=== PATIENT | female | born 1965 | race Caucasian/White ===

== ENCOUNTER 2016-12-29 22:07 | Emergency (ER) | payer MEDICARE, OTHER ==
--- NOTE | ~2016-12-29 | US85 ---
[facility] A Service [facility] RADIOLOGY TEXT RESULTS PATIENT: GAEL TOVAR LOCATION: SED : 63 UNIT #: [id number] AGE: [address]: Nikko Fitzgerald DO SEX: F ORDER DR: [id number] [place] [id number] E MR#: [id number] Acc #: [id number] NAME: GAEL TOVAR : 1965 SEX: F STUDY DATE/TIME: 12/29/2016 22:35 UNIT: SED ROOM: STUDY DESCRIPTION: [facility] Attending Physician: Nikko Fitzgerald D.O. Ordering Physician: Nikko Fitzgerald D.O. Primary Care Physician: Jose Ruelas M.D. MEDICAL IMAGING REPORT This report is preliminary unless electronic signature is present. EXAM Right leg vein Doppler, 12/29 at 22:35. INDICATIONS Right hip, groin and thigh pain for 2 weeks. Fall 1 week ago. FINDINGS TECHNIQUE Venous ultrasound examination of the right lower extremity was performed using grayscale, spectral Doppler and color flow Doppler imaging. FINDINGS The examination is negative. There is no evidence of right lower extremity deep venous thrombus from the groin to the lower calf. Visualized greater saphenous vein is also patent. IMPRESSION Negative examination. No evidence of right lower extremity deep venous thrombosis. Dictated by... Gino Xiao Jr., M.D. THIS IS AN ELECTRONICALLY VERIFIED REPORT Gino Xiao Jr., M.D. at 12/30/2016 12:34 PM JOHS/cedrick TD: 12/30/2016 07:42 JOB #: [id number] MEDICAL IMAGING REPORT [facility] A Service [facility] RADIOLOGY TEXT RESULTS PATIENT: GAEL TOVAR LOCATION: SED : 63 UNIT #: [id number] AGE: [address]: Nikko Fitzgerald DO SEX: F ORDER DR: Page 1 of 1
--- NOTE | ~2016-12-29 | CR151 ---
[facility]. [facility] A Service of [facility] & [facility] RADIOLOGY TEXT RESULTS PATIENT: GAEL TOVAR LOCATION: SED : 63 UNIT #: [id number] AGE: [address]: Nikko Fitzgerald DO SEX: F ORDER DR: [id number] [place] [id number] E MR#: [id number] Acc #: [id number] NAME: GAEL TOVAR : 1965 SEX: F STUDY DATE/TIME: 12/29/2016 22:11 UNIT: SED ROOM: STUDY DESCRIPTION: CR Hip Min 2 Views Rt Attending Physician: Nikko Fitzgerald D.O. Ordering Physician: Nikko Fitzgerald D.O. Primary Care Physician: Jose Ruelas M.D. MEDICAL IMAGING REPORT This report is preliminary unless electronic signature is present. EXAM Right hip, 2 views. INDICATIONS Right hip pain for 1 week. COMPARISON With 09/22/2015. FINDINGS No fracture or dislocation. Joint spaces preserved. Postop change in lower lumbar spine. IMPRESSION No fracture or dislocation. Dictated by... Vinay Mckeon M.D. THIS IS AN ELECTRONICALLY VERIFIED REPORT Vinay Mckeon M.D. at 01/01/2017 8:03 AM LINK/cedrick TD: 12/30/2016 07:07 JOB #: [id number] MEDICAL IMAGING REPORT Page 1 of 1
[~2016-12-29 22:07] MED LIST: ABILIFY PO; ACULAR10 ML OP; ALPRAZOLAM PO; AMBIEN10 MG PO; BUSPAR PO; CELEXA PO; CIPRO PO; CITRATE OF MAG300 ML PO; DIAZEPAM PO; DICLOFENAC PO; DICYCLOMINE HCL20 MG PO; EMBEDA ER 20-01 EACH PO; ESGIC CAPSULE1 CAP PO; FAMOTIDINE PO; FLEXERIL PO; FLEXERIL10 M1 PO; FLEXERIL10 MG PO; FOSAMAX PO; HYDROCODON-ACE1 EAC5 PO; HYDROCODON-ACE1 EAC6; IBUPROFEN PO; IBUPROFEN600 MG PO; IBUPROFEN800 MG PO; ILOTYCIN1 GM OD; IMITREX PO; K-DUR20 ME1 PO; LIORESAL10 MG PO; LODINE; LORTAB 10-3251 EACH PO; LORTAB 10-5001 EACH PO; LORTAB 10/500 T1 TAB PO; LORTAB 5/500 TA1 TA1 PO; LORTAB 7.5-5001 TAB PO; LUNESTA; MEDROL DOSEPAK4 MG PO; MEDROL4 MG/DOSE- PO; MIRALAX17 GM PO; MOBIC; NEURONTIN; NEURONTIN600 MG PO; NO MEDICATIONS; NORCO 10/325 TA1 TAB PO; NORCO 7.5-3251 EACH; NORVASC; NORVASC PO; NORVASC10 MG; ORUDIS75 M1 PO; PERCOCET 10/3251 TAB PO; PERCOCET 7.5-31 EACH PO; PERCOCET PO; PERCOCET7.5 PO; PHENERGAN PO; PHENERGAN25 M1 PO; PHENERGAN25 MG PO; PREVACID PO; ROBAXIN500 MG PO; SKELAXIN PO; TEMAZEPAM PO; TOBRADEX EYE DR10 ML OU; TYLENOL #3 PO; ULTRAM PO; VICODIN PO; VISTARIL PO; VOLTAREN50 MG PO; VOLTAREN75 MG PO; [UNRECOGNIZED DRUG - REMARK]
[2016-12-29] MEDS ORDERED: FLEXERIL10 MG PO (23:52)
[2016-12-29] MEDS ORDERED: VOLTAREN50 MG PO (23:52)
== END 2016-12-30 00:06 | disposition home or self-care (01) ==
LOC: SED 22:07
DX: M79.651 Pain in right thigh (principal); Z86.19 Personal history of other infectious and parasitic diseases; Z98.51 Tubal ligation status; F17.200 Nicotine dependence, unspecified, uncomplicated
CPT/HCPCS: 73502; 93971; 96372; 99284; J1885; J2930

== ENCOUNTER 2017-01-22 18:08 | Emergency (ER) | payer MEDICARE, OTHER ==
--- NOTE | ~2017-01-22 | CR126 ---
[facility]. [facility] A Service of [facility] & [facility] RADIOLOGY TEXT RESULTS PATIENT: GAEL TOVAR LOCATION: SED : 63 UNIT #: [id number] AGE: [address]: EMANUEL DIAZ SEX: F ORDER DR: [id number] [place] [id number] E MR#: [id number] Acc #: [id number] NAME: GAEL TOVAR : 1965 SEX: F STUDY DATE/TIME: 01/22/2017 18:01 UNIT: SED ROOM: STUDY DESCRIPTION: CR Foot Complete Min 3 View Lt Attending Physician: Emanuel Diaz Aprn Ordering Physician: Emanuel Diaz Aprn Primary Care Physician: Jose Ruelas M.D. MEDICAL IMAGING REPORT This report is preliminary unless electronic signature is present. EXAM Left foot, 01/22 INDICATIONS Pain, swelling and bruising in the foot and ankle since fall today at 2:00. FINDINGS Three views of the left foot are compared with 08/10/2012. 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 No acute fracture or malalignment is seen. Soft tissues are unremarkable. IMPRESSION No fracture or malalignment identified. Dictated by... Gino Xiao Jr., M.D. THIS IS AN ELECTRONICALLY VERIFIED REPORT Gino Xiao Jr., M.D. at 01/22/2017 10:25 PM DORYK/ngoc TD: 01/22/2017 21:01 JOB #: [id number] MEDICAL IMAGING REPORT Page 1 of 1
--- NOTE | ~2017-01-22 | CR20 ---
[facility]. [facility] A Service of [facility] & [facility] RADIOLOGY TEXT RESULTS PATIENT: GAEL TOVAR LOCATION: SED : 63 UNIT #: [id number] AGE: [address]: EMANUEL DIAZ SEX: F ORDER DR: [id number] [place] [id number] E MR#: [id number] Acc #: [id number] NAME: GAEL TOVAR : 1965 SEX: F STUDY DATE/TIME: 01/22/2017 18:01 UNIT: SED ROOM: STUDY DESCRIPTION: CR Ankle Min 3 Views Lt Attending Physician: Emanuel Diaz Aprn Ordering Physician: Emanuel Diaz Aprn Primary Care Physician: Jose Ruelas M.D. MEDICAL IMAGING REPORT This report is preliminary unless electronic signature is present. EXAM Left ankle, 01/22/17 HISTORY Lateral pain with bruising and swelling after a fall today at 2 o'clock. FINDINGS Three views of the ankle are compared with 05/25/12. The patient is osteopenic. No acute fracture or malalignment is seen. The soft tissues are unremarkable. IMPRESSION Osteopenia. No acute fracture or malalignment. Dictated by... Gino Xiao Jr., M.D. THIS IS AN ELECTRONICALLY VERIFIED REPORT Gino Xiao Jr., M.D. at 01/22/2017 10:25 PM JOSH/mitch TD: 01/22/2017 20:58 JOB #: [id number] MEDICAL IMAGING REPORT Page 1 of 1
== END 2017-01-22 18:40 | disposition home or self-care (01) ==
LOC: SED 18:08
DX: S93.602A Unspecified sprain of left foot, initial encounter (principal); F17.210 Nicotine dependence, cigarettes, uncomplicated; W01.0XXA Fall on same level from slipping, tripping and stumbling without subsequent striking against object, initial encounter
CPT/HCPCS: 29540; 73610; 73630; 99283

== ENCOUNTER 2017-03-22 22:33 | Emergency (ER) | payer MEDICARE ==
[2017-03-22] MEDS ORDERED: ALPRAZOLAM (22:42)
== END 2017-03-23 00:15 | disposition home or self-care (01) ==
LOC: SED 22:33
DX: F13.129 Sedative, hypnotic or anxiolytic abuse with intoxication, unspecified (principal); F41.9 Anxiety disorder, unspecified
CPT/HCPCS: 82947; 99284